=== PATIENT | female | born 1945 | race Hispanic/Latino ===

== ENCOUNTER 2017-11-29 20:00 | Outpatient (CLI) | payer MEDICARE | END 2017-11-29 20:01 | disposition home or self-care (01) | LOC: SLEEPLAB 20:00 | PROVIDERS: ATTEND Family Medicine | DX: G47.33 Obstructive sleep apnea (adult) (pediatric) (principal); E66.9 Obesity, unspecified; K21.9 Gastro-esophageal reflux disease without esophagitis; R35.1 Nocturia; R06.83 Snoring; I10 Essential (primary) hypertension; E11.9 Type 2 diabetes mellitus without complications | CPT/HCPCS: 95806 ==

== ENCOUNTER 2018-01-07 19:30 | Outpatient (CLI) | payer MEDICARE | END 2018-01-07 19:31 | disposition home or self-care (01) | LOC: SLEEPLAB 19:30 | PROVIDERS: ATTEND Family Medicine | DX: G47.33 Obstructive sleep apnea (adult) (pediatric) (principal); E66.9 Obesity, unspecified; K21.9 Gastro-esophageal reflux disease without esophagitis; R06.83 Snoring; R35.1 Nocturia; I10 Essential (primary) hypertension; E11.9 Type 2 diabetes mellitus without complications | CPT/HCPCS: 95811 ==

== ENCOUNTER 2018-02-05 12:18 | Outpatient (CLI) | payer MEDICARE ==
--- NOTE | 2018-02-14 15:01 | MMO ---
BILATERAL MAMMOGRAMS: History: Screening mammography. Comparison: 08-28-13 FINDINGS: Scattered fibroglandular densities and benign appearing calcifications are again demonstrated. No dom inant mass or suspicious calcifications. This study is interpreted with the assistance of computer ai ded detection. IMPRESSION: BIRADS category 1 - negative. Suggest routine follow up. POS: [place]
== END 2018-02-05 12:19 | disposition home or self-care (01) ==
LOC: SCSMAMMO 12:18
PROVIDERS: ATTEND Family Medicine
DX: Z12.31 Encounter for screening mammogram for malignant neoplasm of breast (principal)
CPT/HCPCS: 77067